=== PATIENT | female | born 1950 | race Caucasian/White ===

== ENCOUNTER → 2018-02-09 | Outpatient (CLI) | payer OTHER | LOC: RAD 04:27 | DX: Z12.31 Encounter for screening mammogram for malignant neoplasm of breast (principal) ==

== ENCOUNTER → 2020-03-28 | Outpatient (CLI) | payer OTHER | LOC: RAD 14:17 | PROVIDERS: ATTEND Internal Medicine | DX: Z12.31 Encounter for screening mammogram for malignant neoplasm of breast (principal) ==

== ENCOUNTER → 2020-04-19 | Outpatient (CLI) | payer OTHER | LOC: ULTRA 04-17 08:19 → BC 04-17 12:21 | PROVIDERS: ATTEND Radiology Diagnostic Radiology | DX: N63.12 Unspecified lump in the right breast, upper inner quadrant (principal); Z90.12 Acquired absence of left breast and nipple ==

== ENCOUNTER → 2020-04-24 | Outpatient (CLI) | payer OTHER ==
--- NOTE | 2020-04-30 19:07 | PATH ---
[facility] [place] [address] PATHOLOGY RPT PROCEDURE Name: ERIKA BOYLE Room #: REG [facility] M.R.#: [id number] Admission: 04/24/20 Date of : 48 Discharge: Report #: [id number] Path Case #: [id number] [facility] Accession Number: [id number] . 01 Material submitted: . breast - RIGHT BREAST MASS. Modifiers: right . 01 Clinician provided ICD-10: D05.11 . 01 Clinical history: . RIGHT 2:00 4CM . 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 - Negative for invasive carcinoma. - Coarse calcifications submitted in block A1 in association with vessels. . (IUV:pit 04/26/2020) QTP 04/27/2020 1009 Local . 02 Comment: Dr. Nirali Vasquez has seen this case and concurs with the diagnosis rendered. . Findings of this case are telephoned to [place] in our breast center at approximately 10:20 am on 04/26/2020. . ER and SC are ordered on block A3 and the results of this will be reported in an addendum to follow. (IUV:pit 04/26/2020) . 02 Addendum: . Special studies report received from [facility], [address] [place] [address], [address], [place], [address], on case [id number], labeled with their number [id number], dated 04/30/2020. . Breast/Prognostic Marker Analysis . Specimen Site: Right Breast, 2:00 (Biopsy), Ductal Carcinoma In Situ Specimen ID #: [id number] . [address] [address] PATHOLOGY RPT PROCEDURE Name: MEGHANGARCIAERIKA CATHY Room #: REG [facility].#: [id number] Admission: 04/24/20 Date of : 48 Discharge: Report #: [id number] Path Case #: [id number] ER (Estrogen Receptor) Present/Positive Percent: 95.00% Analysis: Manual Comments: Staining Intensity: Strong. Prognostic groupings are reported only for invasive primary breast carcinomas. Please disregard the reference ranges to the right. . SC (Progesterone Receptor) Present/Positive Percent: 65.00% Analysis: Manual Comments: Staining Intensity: Moderate-strong. Prognostic groupings are reported only for invasive primary breast carcinomas. Please disregard the reference ranges to the right. . Time to Fixation (Cold Ischemic Time): Immediate Duration of Fixation: 7 Hours 10 Minutes Type of Fixative: 10% Neutral Buffered Formalin . Comments: ER/PgR testing at [facility]. is performed in compliance with the ASCO/CAP Clinical Practice Guidelines. If the result for ER is less than 1% it is reported as Negative; if the ER result is 1-10% it is reported as Low Positive; if the ER result is greater than 10% it is reported as Positive. If the result for PgR is less than 1% it is reported as Negative; if the PgR result is equal to or greater than 1%, it is reported as Positive. . Ref: Kathie FONTAINE, Francis MOORE, Leo M, et al. Estrogen and progesterone receptor testing in breast cancer. ASCO/CAP guideline update. Arch Pathol Lab Med. 2020; 144:545-563. . Whole slide image capture is performed using [employer] (enVista) platform. Image analysis, if ordered, is performed using [employer] software. . . at [facility] [employer]. Vin Rios M.D. Pathologist . . Methodology A rabbit monoclonal antibody (clone SP1) that recognized the Estrogen Receptor is used to perform immunohistochemistry on routinely fixed (formalin) paraffin embedded tissue on the [employer]. The specimen [address] [address] PATHOLOGY RPT PROCEDURE Name: ERIKA BOYLE Room #: KENAN Caceres.#: [id number] Admission: 04/24/20 Date of : 48 Discharge: Report #: [id number] Path Case #: [id number] is processed using a secondary antibody-HRP conjugate detection system. The percentage of stained tumor nuclei is determined either manually or by image analysis. This test is intended for in vitro diagnostic use. This test is used for clinical purposes. . A rabbit monoclonal antibody (clone 1E2) that recognized the Progesterone Receptor is used to perform immunohistochemistry on routinely fixed (formalin) paraffin embedded tissue on the [employer]. The specimen is processed using a secondary antibody-HRP conjugate detection system. The percentage of stained tumor nuclei is determined either manually or by image analysis. This test is intended for in vitro diagnostic use. This test is used for clinical purposes. . Intended Use: This antibody is intended for in vitro diagnostic (IVD) use. Estrogen Receptor (ER) (SP1) is a rabbit monoclonal antibody (IgG) that is intended for the qualitative detection of estrogen receptor (ER) antigen in sections of formalin-fixed, paraffin-embedded tissue. ER is a rabbit monoclonal antibody that recognizes human estrogen receptor alpha. . This antibody is intended for in vitro diagnostic (IVD) use. Progesterone Receptor (SC) (1E2) is a rabbit monoclonal antibody (IgG) that is intended for the qualitative detection of progesterone receptor (SC) antigen in sections of formalin fixed, paraffin embedded tissue. SC is a rabbit monoclonal antibody that recognizes the A and B forms of the human progesterone receptor. . Disclaimer: This Test was performed by [facility] at [facility], [address]. . [facility] is a business unit of [facility] a wholly-owned subsidiary of [employer]. . This assay has not been validated on decalcified tissues. Results should be interpreted with caution if this specimen was decalcified given the likelihood of false negativity on decalcified specimens. . Any image(s) that accompany this report is/are a sales representatives image(s) only and should not be used to render a diagnosis. . This interpretation is contingent on the specimen and the clinical information received. . For any special tests/stains performed, known positive cells or tissues are tested with each marker and examined to ensure positivity. Positive and negative internal controls, if present, react appropriately. [facility] [address] [place] [address] PATHOLOGY RPT PROCEDURE Name: ERIKA BOYLE Room #: REG [facility]..#: [id number] Admission: 04/24/20 Date of : 48 Discharge: Report #: [id number] Path Case #: [id number] . This analysis is an adjunct to the evaluation of the referring physician and does not represent a final diagnosis. . The immunohistochemistry tests performed at [facility] [employer] were validated on tissue fixed in 10% neutral buffered formalin. The performance characteristics of the tests performed on tissue processed in other fixatives is not known. . ER/SC ASCO/CAP guidelines require fixation in neutral buffered formalin for a minimum of 6 and a maximum of 72 hours. Fixation times less than 6 hours may not adequately preserve cell proteins. Fixation times longer than 72 hours may cause excess cross-linking of proteins reducing the antigen available for staining. Either scenario can cause reduced staining; hence false negative results are possible and should be considered for these situations. The time from biopsy/excision to fixation in formalin (cold ischemic time) must be less than 1 hour. Time to fixation (cold ischemic time) greater than 1 hour should be interpreted with caution. REF: Francis, M, et al. [place] Society of Clinical On[employer]/College of [place] [employer] Guideline Recommendations for Immunohistochemical Testing of Estrogen and Progesterone Receptors in Breast Cancer. J Clin Oncol. 2009September 11; 28(16): 9537-9457. . A complete copy of the report is on file. . Professional and Technical services performed by [facility]. at [address], [address] [address]. . (IUV:amj 04/30/2020) . MBR/04/30/2020 Addendum Electronically Signed by Georgette Llanos MD, Pathologist . 02 Electronically signed: . Georgette Llanos MD, Pathologist NPI- [id number] . 01 Gross description: . The specimen is received in formalin, labeled "Erika Boyle, right breast 2:00 4 cm". Received are multiple needle cores of fibrofatty tissue measuring 2.8 x 2.0 x 0.5 cm in aggregate dimensions. The specimen is submitted entirely in cassettes A1 through A3. The cold ischemic time is less than 1 minute. The total formalin fixation time is 7 hours and 10 minutes. (CAA; 04/25/2020) QA/QAC 04/25/2020 1337 Local . 02 Pathologist provided ICD-10: [address] [address] PATHOLOGY RPT PROCEDURE Name: ERIKA BOYLE Room #: REG [facility]#: [id number] Admission: 04/24/20 Date of : 48 Discharge: Report #: [id number] Path Case #: [id number] D05.11 . 02 CPT . [id number] Specimen Comment: A courtesy copy of this report has been sent to [phone] Specimen Comment: Report sent to Specimen Comment: A duplicate report has been generated due to demographic updates. Performed at: [address] [facility] [id number] [facility] [address], [place] [id number] MD Darci Russell MD Phone: [phone] Performed at: [address] [id number] MD Georgette Llanos MD Phone: [phone]
== END | disposition home or self-care (01) ==
LOC: ULTRA 10:49
PROVIDERS: ATTEND Internal Medicine
DX: D05.11 Intraductal carcinoma in situ of right breast (principal)